=== PATIENT | female | born 1970 | race American Indian/Alaskan Native ===

== ENCOUNTER 2019-06-22 13:14 | Outpatient (CLI) | payer OTHER ==
--- NOTE | 2019-06-22 14:41 | Mammography Report ---
DIGITAL SCREENING MAMMOGRAM WITH CAD, 06/22/2019 INDICATION: Routine screening mammography. TECHNIQUE: Digital bilateral 2D mammography was obtained in the craniocaudal and mediolateral obliq ue projections. This examination was interpreted with the benefit of Computer-Aided Detection analysi s. COMPARISON: None available at the time of dictation. FINDINGS: Breast Density: There are scattered areas of fibroglandular density. There is no evidence of dominant mass, suspicious calcifications or architectural distortion in eithe r breast. Evidence of prior reduction mammoplasty. There are benign calcifications in the subareolar breast bilaterally. IMPRESSION: No evidence of malignancy. BI-RADS Category 2: Benign. No mammographic evidence of malignancy. Recommend routine screening ma mmography in one year. A "normal" or negative report should not discourage follow up or biopsy of a clinically significant f inding. A written summary of these findings will be mailed to the patient. The patient will be entered into a mammography reporting system which will generate a reminder letter for the patient's next appointmen t at the appropriate interval. The [employer] recommends yearly mammograms starting at age 40 and continuing as l ekaterina as a woman is in good health. Breast MRI is recommended for women with an approximate 20-25% or greater lifetime risk of breast cancer, including women with a strong family history of breast or ova venkat cancer or who have been treated for Hodgkin's disease. Signer Name: Kaela Ramirez MD Signed: 06/22/2019 2:36 PM Workstation Name: [id number]
== END 2019-06-22 13:15 | disposition home or self-care (01) ==
LOC: SPVWC 13:14
PROVIDERS: ATTEND Obstetrics & Gynecology
DX: Z12.31 Encounter for screening mammogram for malignant neoplasm of breast (principal)
CPT/HCPCS: 77067